=== PATIENT | male | born 1955 | race Caucasian/White ===

== ENCOUNTER 2021-09-30 12:35 | Emergency (ER) | payer OTHER, SELFPAY ==
[2021-09-30 12:41] VITALS: BP 126/80; PULSE 73; RESP 16; TEMP 36.9; O2SAT 98; BMI 18.8
--- NOTE | 2021-09-30 13:43 | ED.NURSE ---
Bladder scan: 345 mL. MD updated and advises to do repeat bladder scan post void. Pt up to bathroom to attempt urination.
[2021-09-30 14:00] VITALS: BP 134/99; PULSE 66; RESP 18; O2SAT 98
--- NOTE | 2021-09-30 14:03 | ED.NURSE ---
Pt able to void small amount. UA sent to lab. Post void bladder scan showing 384 mL.
[2021-09-30 14:10] LABS: Appearance Urine Clear (Clear); Bilirubin Urine Negative (Negative); Blood Urine Negative (Negative); Color Urine Yellow (Yellow); Glucose Urine Negative (Negative); Ketones Urine Trace (Negative); Leukocyte Esterase Urine Negative (Negative); Nitrite Urine Negative (Negative); Protein Urine 1+ (Negative); Specific Gravity Urine 1.015 (1.000-1.030); Urobilinogen Urine 0.2 (0.2-1.0)
[2021-09-30 14:17] LABS: Bacteria Urine Few; RBC Urine 0-2 (0-2); Squamous Epithelial Cell Urine Few (None-Few); WBC Urine 0-2 (0-5)
[2021-09-30] MEDS: lidocaine HCL 2 % JELLY (TOP) STERILE 6 ML UR (14:20)
--- NOTE | 2021-09-30 14:44 | ED.NURSE ---
16 greenlandic coude catheter placed with aseptic technique following administration of urojet. Dee catheter bag secured with leg strap. ~500 mL removed from dee bag.
--- NOTE | 2021-09-30 15:31 | ED_ITS ---
HPI - General Adult General Date Seen: 09/30/21 Chief complaint: Urogenital Problems, Male Stated complaint: unable to urinate Time Seen by Provider: 09/30/21 13:01 Source: patient and family History of Present Illness HPI narrative: Patient is a 66-year-old male who notes about a 2 day history of difficulty urinating. He says when he goes just small amount comes out. He further says that he has to sit down on the toilet because he tries to urinate he often feels like he has to poop at the same time. He does deny fecal incontinence, tells me that he has had longstanding problems with his gut, that this is not new. The urinary symptoms however are new. He has not had any hematuria or dysuria. Has not had any flank or abdominal pain, aside from chronic abdominal discomfort related to his longstanding gut problems. He does say that he has lost approximately 50 lb in the past 6 months. He has an appointment upcoming in approximately [address] Zamorano to look into that. He says his appetite is decreased but he has been trying to eat a lot of food, and he still says he is losing weight. He did see Dr. Zamorano a couple of months ago about this, and Dr. Zamorano had recommended that he try and increase his calorie intake, and if he was not gaining weight that they would revisit the issue. His sister provides additional history that several years ago, at a time when he was drinking heavily, he was seen here, had alcohol withdrawal, was given Ativan, and then had liver and kidney failure, was in the ICU for about a month comatose. He had of long period of rehab then and now resides in [place]. He no longer drinks. He does not smoke cigarettes, he does tell me that he uses marijuana both for pain control as well as recreation. He has chronic back pain as well as multiple areas of extremity pain. He denies any new chest or abdominal pain, no shortness of breath. He has not had fevers. Related Data Home Medications Medication Instructions Recorded Confirmed alendronate 70 mg tablet mg PO 09/30/21 amlodipine 5 mg tablet mg 09/30/21 atorvastatin 20 mg tablet mg 09/30/21 calcium carbonate 600 mg-vitamin tab PO 09/30/21 D3 10 mcg (400 unit) tablet chlorhexidine gluconate 0.12 % 09/30/21 mouthwash cholecalciferol (vitamin D3) 125 09/30/21 mcg (5,000 unit) capsule cyanocobalamin (vitamin B-12) 500 mcg 09/30/21 mcg tablet duloxetine 60 mg capsule,delayed mg PO 09/30/21 release magnesium oxide 400 mg (241.3 mg mg 09/30/21 magnesium) tablet metoprolol tartrate 25 mg tablet mg 09/30/21 pantoprazole 40 mg tablet,delayed mg PO 09/30/21 release tamsulosin 0.4 mg capsule mg PO 09/30/21 warfarin 1 mg tablet mg 09/30/21 Allergies Allergy/AdvReac Type Severity Reaction Status Date / Time No Known Drug Allergies Allergy Verified 09/30/21 12:49 Review of Systems Status of ROS: Reports: 10 or more systems reviewed and unremarkable except as noted in History and below [facility] Social History Smoking Status: Former smoker What tobacco products do you use: KFx Medical quit date/years: <= 15 years ago Do you use any of these nicotine containing products: None Second hand tobacco smoke exposure: Yes Non-prescribed substance use: marijuana (any form) Exam Narrative: Exam Narrative: Vital signs as noted below. In general, an alert, cooperative male. Thin. Head: Normocephalic, atraumatic. Eyes: Pupils are equal reactive. Extraocular movements are full. Conjunctivae are anicteric. ENT: Mucous membranes are moist. Throat is normal. Neck: Supple, no cervical adenopathy, no supraclavicular adenopathy. Heart: Regular rate and rhythm. No murmur or rub. Lungs: Occasional scattered wheezes. No increased work of breathing. Abdomen: Soft, some suprapubic tenderness with likely palpable bladder above the pelvic rim. Extremities: Well perfused. No edema. No calf tenderness. Pulses intact. Neurologic: Patient is alert and oriented to person and place. Speech is fluent. Face is symmetric. Moves all extremities equally. Affect: Normal. Skin: Warm and dry. Well perfused. Const: Vital Signs, click to edit/add: Vital Signs - 24 hr 09/30/21 12:41 Temperature 98.4 F Pulse Rate [Right Pulse Oximeter] 73 Respiratory Rate 16 Blood Pressure [Le ft Upper Arm] 126/80 Pulse Oximetry 98 Documenting provider has reviewed patient's vital signs: yes Course Course Hospital Course: We did an initial bladder scan which showed about 350 mL of urine in the bladder. Postvoid showed 380 mL. Bryan catheter was placed with about 500 mL out. Urinalysis is negative here aside from trace ketones. 0-2 red cells, 0-2 white cells. He does take Coumadin for history of stroke, but certainly is not showing anything clinically to suggest that this is related to significant hematuria. Discussed with him that these types of symptoms are offer been related to prostate issues, and that I would suggest that we leave the Bryan catheter in place for now and that we have him follow-up with Urology. He has had a significant weight loss over the past 6 months, but has an appointment in the next couple of weeks, and I think that is a better place to work that up then beginning a workup for that in the emergency department given that he is not having any other acute symptoms right now. He is comfortable with that plan. If he were to develop significant hematuria or other new symptoms such as fever, severe pain, vomiting etcetera would want him to return to the emergency department for further evaluation. Vital Signs Vital signs: Initial Vital Signs Temperature 98.4 F 09/30/21 12:41 Temperature Source Temporal Artery Scan 09/30/21 12:41 Pulse Rate 73 09/30/21 12:41 Respiratory Rate 16 09/30/21 12:41 Blood Pressure 126/80 09/30/21 12:41 Blood Pressure Mean 95 09/30/21 12:41 Blood Pressure Position Supine 09/30/21 12:41 Pulse Oximetry 98 09/30/21 12:41 Oxygen Delivery Method 09/30/21 12:41 Vital Signs Temperature 98.4 F 09/30/21 12:41 Pulse Rate 73 09/30/21 12:41 Respiratory Rate 16 09/30/21 12:41 Blood Pressure 126/80 09/30/21 12:41 Pulse Oximetry 98 09/30/21 12:41 Temperature 98.4 F 09/30/21 12:41 Pulse Rate 73 09/30/21 12:41 Respiratory Rate 16 09/30/21 12:41 Blood Pressure 126/80 09/30/21 12:41 Pulse Oximetry 98 07/30/22 12:41 Medical Decision Making Lab Data Labs: Lab Results 09/30/21 Range/Units 13:37 Urine Color Yellow (Yellow) Urine Appearance Clear (Clear) Urine pH 7.0 (5.0-8.5) Ur Specific [place] 1.015 (1.000-1.030) Urine Protein 1+ A (Negative) Urine Glucose (UA) Negative (Negative) Urine Ketones Trace A (Negative) Urine Blood Negative (Negative) Urine Nitrite Negative (Negative) Urine Bilirubin Negative (Negative) Urine Urobilinogen 0.2 (0.2-1.0) Ur Leukocyte Esterase Negative (Negative) Urine RBC 0-2 (0-2) Urine WBC 0-2 (0-5) Ur Squamous Epith Cells Few (None-Few) Amorphous Sediment (None) Urine Bacteria Few A (None) Discharge Plan Discharge Clinical Impression: Acute retention of urine Patient Disposition: Home, Self-Care Condition: Improved Instructions: Urinary Retention in Men (ED) Additional Instructions: Leave catheter in place for now. Urology follow-up, call [facility] at [phone] to schedule. If you develop significant blood in urine, fevers, vomiting, severe pain, or other significant problems, return for re-evaluation. Follow up with Dr. Zamorano as planned in a couple of weeks. Prescriptions: No Action atorvastatin 20 mg tablet 0RF alendronate 70 mg tablet PO 0RF amlodipine 5 mg tablet 0RF magnesium oxide 400 mg (241.3 mg magnesium) tablet 0RF cyanocobalamin (vitamin B-12) 500 mcg tablet 0RF tamsulosin 0.4 mg capsule PO 0RF pantoprazole 40 mg tablet,delayed release (DR/EC) PO 0RF warfarin 1 mg tablet 0RF cholecalciferol (vitamin D3) 125 mcg (5,000 unit) capsule 0RF metoprolol tartrate 25 mg tablet 0RF duloxetine 60 mg capsule,delayed release(DR/EC) PO 0RF chlorhexidine gluconate 0.12 % mouthwash 0RF calcium carbonate-vitamin D3 600 mg-10 mcg (400 unit) tablet PO 0RF Follow Up/Referrals: Zachery Zamorano MD [Primary Care Provider] - Stand Alone Forms: [facility] Info Instructions
[2021-09-30 15:45] VITALS: BP 127/88; PULSE 74; RESP 16; O2SAT 92
== END 2021-09-30 15:51 | disposition home or self-care (01) ==
PROVIDERS: Emergency Provider Emergency Medicine; PCP Family Medicine
DX: R33.9 Retention of urine, unspecified (principal)
CPT/HCPCS: 51702; 81001; 87086; 99283

== ENCOUNTER 2023-08-30 09:30 | Outpatient (RCR) | payer OTHER, SELFPAY ==
--- NOTE | 2023-07-31 16:45 | PT.OPEX ---
PT [place] Outpatient Eval PT [facility] Outpatient Eval Start: 07/31/23 15:33 Freq: Status: Active Protocol: Document 07/31/23 15:33 ODALYS (Rec: 07/31/23 16:44 ODALYS [id number]) E-signed By Margarita Glover PT Physical Therapy Outpatient Evaluation Insurance Information Recert Due Date 10/28/23 Insurance Name [facility] Medical Diagnosis NECK PAIN Treating Diagnosis NECK PAIN Referring MD DR. PAULO GONZALEZ Subjective Subjective ZACKARY REPORTS CHRONIC NECK PAIN AND DESCRIBES HIS CAT KICKING HIM IN THE CHIN AND HEARING A SERIES OF POPS AFTERWARD HE FELT MUCH BETTER. SINCE THAT INCIDENT, HE REPORTS THAT HE CAN, AT TIMES, CREATE THE SAME MOBILIZATION AND, AGAIN, HE FEELS THAT IT MOVES MUCH BETTER. HE STATES, I THINK IT JUST GETS STUCK. BUT I BOUGHT A SCOOTER AND I AM MOVING MY HEAD A LOT. I THINK IT'S HELPING. Pain Comments 3/10 AT BEST AND 5/10 AT WORST Date of Last Physician Visit 07/30/23 Current Work Status Retired Preferred Name ZACKARY Precautions Treatment Precautions/Contraindications ANTICOAGULATION PRECAUTIONS Assessment Assessment/Impression PATIENT IS A 67 YO MALE REFERRED BY DR. GONZALEZ TO EVAL AND TREAT NECK PAIN. PMHX INCLUDES BUT NOT LIMITED TO AFIB W/ANTICOAGULANT, HTN, HLD , COPD CIRRHOSIS OF LIVER, H/O LEFT ELBOW ORIF, H/O HERNIA REPAIRS X 5, H/O CVA X 2, H/O COMA WITH 5 MO HOSPITAL STAY ~ 5 YRS AGO D/T ORGAN SHUT -PER PATIENT. PATIENT C/O PAIN WITH END RANGE ROTATION R>L, CERVICAL EXTENSION>FLEX AND NO DIFFERENCE WITH R/L SIDEBEND. 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 HE HAS MIN/MOD HYPOMOBILITY ABOUT THE R>L CERVICAL FACETS WITH TTP RIGHT SPLENIUS CAPITIS, SEMISPINALIS CAPITIS, AND SCM ORIGIN. LASTLY, HE C/O CHRONIC HEADACHE THAT EXTEND IN A SKULL LIKE FASHION ABOUT HIS CRANIUM. HE RESPONDED WELL TO THE DTM INCLUDING SUBOCCIPITAL RELEASE AND PROM STRETCHING OF THE PARASPINAL MUSCULATURE. HE IS APPROPRIATE FOR SKILLED PHYSICAL THERAPY FOR CERVICAL STRETCHING, MANUAL THERAPY, STRENGTHENING AND POSTURAL EDUCATION. PATIENT VERBALIZED UNDERSTANDING TO ALL SKILLED INSTRUCTION AND AGREEABLE TO POC AND FREQ. Primary Functional Limitations CERVICAL ROTATION PROLONGED FWD HEAD POSTURING DURING MANUAL DUAL UE TASKS HEADACHE Plan of Care Rehabilitation Potential Good Physical Therapy Goals 1. PATIENT WILL BE EDUCATED ON POSTURE, BODY MECHANICS AND THE IMPORTANCE OF EA IN THE NEXT 2-3 WEEKS IN ORDER TO DECREASE STRESS TO THE JOINT/ MM AND TO DECREASE THEIR SYMPTOMS. 2. PATIENT WILL DECREASE THEIR PAIN AT WORST FROM 5/10/10 TO >/3/10 IN THE NEXT 4-6 WEEKS WE PROGRESS HER PHYSICAL THERAPY WELL DURING DAILY ACTIVITIES. 3. 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 4. PATIENT WILL BE INDEPENDENT WITH THEIR HEP WITHIN 6-8 WEEKS FOR PROGRESSION OF THE ABOVE GOALS, ONGOING SELF MGMT OF PAIN/SX, ONGOING, SELF IMPROVEMENTS IN ROM, POSTURE, AND RETURN TO BASELINE WITH DAILY ACTIVITIES, PEER/FAMILY CENTERED ACTIVITIES WITHOUT FLARE UPS OF SYMPTOMS/PAIN. Coordination/Communication With Referral Source Treatment Plan/Direct Interventions Electrical Stimulation,Joint Mobilization,Manual Therapy, Neuromuscular Re-ed,Self-Care/ Home Management,Therapeutic Activities,Therapeutic Exercises Frequency/Duration 1X/WK FOR 8-12 WKS Patient Will Be Discharged From Therapy Completion of LTG(s), Independently Progressing Evaluation Billing Untimed Code Treatment Minutes 20 PT Eval No Charge No Complexity Moderate Certification Information Initial Certification Date 07/31/23 Ending Certification Date 10/28/23 Provider Signature Shows Agreement With POC & Medical Necessity Physician Signature & Date Requested Please Sign/Date Here Physician Comment/Change : Physician NPI Number #
== END 2023-10-15 16:25 | disposition home or self-care (01) ==
PROVIDERS: PCP Family Medicine; Visit Provider Family Medicine
DX: M54.2 Cervicalgia (principal); Z51.89 Encounter for other specified aftercare
CPT/HCPCS: 97110; 97140; 97162